=== PATIENT | female | born 1995 | race Caucasian/White ===

== ENCOUNTER 2020-10-25 21:39 | Emergency (ER) | payer MEDICAID ==
[~2020-10-25] VITALS: Ht 157.5 cm; Wt 66.7 kg
[2020-10-25 21:44] VITALS: BP 121/81
--- NOTE | 2020-10-25 21:47 | NUR ---
TO BED AMBULATORY
--- NOTE | 2020-10-25 22:09 | NUR ---
RECEIVED IN BED 7 WITH C/O RIGHT SHOULDER PAIN SINCE THIS AM WITH TINGLING TO RIGHT ARM. F.R.O.M. NOTED.
[2020-10-25] MEDS ORDERED: IBUPROFEN 600 MG TAB PO ONE (23:25)
[2020-10-25] MEDS ORDERED: CYCLOBENZAPRINE 10 MG TAB PO ONE (23:25)
[2020-10-25] MEDS ORDERED: LIDO1ADH47 TP (23:35)
[2020-10-25] MEDS ORDERED: CYCL-711 PO (23:35)
--- NOTE | 2020-10-25 23:58 | NUR ---
Patient discharged with v/s stable. Written and verbal after care instructions given and explained. Patient alert, oriented and verbalized understanding of instructions. Ambulatory with steady gait. All questions addressed prior to discharge. ID band removed. Patient advised to follow up with PMD. Rx of FLEXERIL given. Patient educated on indication of medication including possible reaction and side effects. Opportunity to ask questions provided and answered.
== END 2020-10-25 23:58 | disposition home or self-care (01) ==
LOC: MED 21:39
DX: M25.511 Pain in right shoulder (principal); Z88.6 Allergy status to analgesic agent; Z79.899 Other long term (current) drug therapy
CPT/HCPCS: 73030; 99283

== ENCOUNTER 2021-03-13 22:01 | Emergency (ER) | payer MEDICAID ==
[~2021-03-13] VITALS: Ht 157.5 cm; Wt 59.0 kg
[~2021-03-13 22:01] MED LIST: CYCL-711 PO; LIDO1ADH47 TP
--- NOTE | 2021-03-13 22:38 | NUR ---
Dr. Yanez examining patient.
[2021-03-13 22:40] VITALS: BP 129/78
[2021-03-13 22:48] LABS: APPEARANCE,URINE SL CLOUDY (CLEAR); BILIRUBIN,URINE NEGATIVE (NEGATIVE); BLOOD, URINE TRACE-I (NEGATIVE); COLOR,URINE YELLOW (YELLOW); LEUKOCYTE ESTERASE ,URINE 1+ (NEGATIVE); NITRITE, URINE NEGATIVE (NEGATIVE); UGLUCOSE NEGATIVE (NEGATIVE)
[2021-03-13] MEDS ORDERED: PHEN-1877 PO (22:50)
[2021-03-13] MEDS ORDERED: NITR100C7 PO (22:50)
[2021-03-13 22:56] VITALS: BP 129/78
--- NOTE | 2021-03-13 22:57 | NUR ---
Patient discharged with v/s stable. Written and verbal after care instructions given and explained. Patient verbalized understanding. Ambulatory with steady gait. All questions addressed prior to discharge. Advised to follow up with PMD.
[2021-03-13 22:59] LABS: RBC,URINE 0-5 /HPF (0-5)
== END 2021-03-13 22:57 | disposition home or self-care (01) ==
LOC: MED 22:01
DX: N39.0 Urinary tract infection, site not specified (principal); R11.0 Nausea; Z79.899 Other long term (current) drug therapy; Z88.6 Allergy status to analgesic agent
CPT/HCPCS: 81001; 81025; 87086; 99283

== ENCOUNTER 2021-09-11 19:48 | Emergency (ER) | payer MEDICAID ==
[~2021-09-11] VITALS: Ht 157.5 cm; Wt 62.2 kg
[~2021-09-11 19:48] MED LIST changes: +NITR100C7 PO; +PHEN-1877 PO
[2021-09-11 20:01] VITALS: BP 128/72
--- NOTE | 2021-09-11 20:05 | NUR ---
PT TAKEN TO BED 11.
--- NOTE | 2021-09-11 20:05 | NUR ---
PT TAKEN TO BED 11
--- NOTE | 2021-09-11 20:06 | NUR ---
Patient BIB by family from home. C/O bug bite x 3 weeks. Patient reported, had unknown bug bite right inner ankle ~ 3 weeks ago, burning sensation, itchy ,joints pain and no fever.
--- NOTE | 2021-09-11 20:54 | NUR ---
Dr. Bueno at bedside to exam patient.
--- NOTE | 2021-09-11 22:13 | NUR ---
Patient states " I can not wait, I have emergency and need to go now." Dr. Bueno notified.
[2021-09-11 22:15] VITALS: BP 128/72
--- NOTE | 2021-09-11 22:15 | NUR ---
Patient D/C without papers.
== END 2021-09-11 22:15 | disposition home or self-care (01) ==
LOC: MED 19:48
DX: R21 Rash and other nonspecific skin eruption (principal); M25.571 Pain in right ankle and joints of right foot; R20.0 Anesthesia of skin; R20.2 Paresthesia of skin; Z79.899 Other long term (current) drug therapy; Z88.6 Allergy status to analgesic agent
CPT/HCPCS: 99281

== ENCOUNTER 2021-12-21 00:06 | Emergency (ER) | payer MEDICAID ==
[~2021-12-21] VITALS: Ht 157.5 cm; Wt 62.8 kg
[2021-12-21 00:12] VITALS: BP 126/77
--- NOTE | 2021-12-21 00:16 | NUR ---
PT TO LOBBY WAITING FOR OPEN BED.
--- NOTE | 2021-12-21 00:25 | NUR ---
EXAMINING PT IN [facility].
[2021-12-21] MEDS ORDERED: IBUPROFEN 800 MG TAB PO ONE (00:35)
[2021-12-21] MEDS ORDERED: PANTOPRAZOLE 40 MG TABEC PO ONE (00:35)
--- NOTE | 2021-12-21 00:39 | NUR ---
PT TAKEN TO CT VIA W/C
--- NOTE | 2021-12-21 00:51 | NUR ---
PT BACK FROM CT
--- NOTE | 2021-12-21 00:51 | NUR ---
PT TAKEN TO BED #[address]
--- NOTE | 2021-12-21 01:25 | NUR ---
26 Y.O. F BIB SELF C/O 01/28 LUQ PAIN RAD TO BACK X4DAYS. +NAUSEA. DENIES V/D, SOB OR CHEST PAIN. A&OX4, STEADY GAIT, VITALS WNL, SKIN INTACT, AND IS NORMAL. HX:CHIARI MALFORMATION RX:TOPAMAX ALLERGY:TYLENOL AND IBUPROFEN
[2021-12-21 02:12] LABS: BASOPHILS # (AUTO) 0.1 K/uL (0.00-0.22); BASOPHILS % (AUTO) 0.6 % (0.0-2.0); EOSINOPHILS # (AUTO) 0.1 K/uL (0-0.4); EOSINOPHILS % (AUTO) 1.4 % (0.0-4.0); HEMATOCRIT 37.4 % (36-48); HEMOGLOBIN 12.7 g/dL (12.0-16.0); MEAN CORPUSCULAR HEMOGLOBIN 29 pg (27-31); MEAN CORPUSCULAR HGB CONC 34 g/dL (33-37); MEAN CORPUSCULAR VOLUME 85.1 fL (80-94); MONOCYTES # (AUTO) 0.9 K/uL (0.8-1.0); MONOCYTES % (AUTO) 9.5 % (1.7-9.3); NEUTROPHILS # (AUTO) 5.8 K/uL (1.8-7.7); NEUTROPHILS % (AUTO) 58.5 % (42.2-75.2); PLATELET COUNT (AUTO) 316 K/uL (140-450); RED CELL DISTRIBUTION WIDTH 12.9 % (11.6-13.7); WHITE BLOOD COUNT (AUTO) 9.8 K/uL (4.8-10.8)
[2021-12-21 02:34] LABS: ALBUMIN 3.6 g/dL (3.4-5.0); ANION GAP 8.9 (8-16); CARBON DIOXIDE 27.9 mmol/L (21-32); CREATININE 0.6 mg/dL (0.6-1.3); POTASSIUM 3.8 mmol/L (3.5-5.1); TOTAL BILIRUBIN 0.5 mg/dL (0.0-1.0)
[2021-12-21] MEDS ORDERED: PANT40EC PO (02:46)
[2021-12-21 04:01] VITALS: BP 124/78
--- NOTE | 2021-12-21 04:02 | NUR ---
Patient discharged with v/s stable. Written and verbal after care instructions given and explained. Patient alert, oriented and verbalized understanding of instructions. Ambulatory with steady gait. All questions addressed prior to discharge. ID band removed. Patient advised to follow up with PMD. Rx of PROTONIX given. Patient educated on indication of medication including possible reaction and side effects. Opportunity to ask questions provided and answered.
== END 2021-12-21 04:02 | disposition home or self-care (01) ==
LOC: MED 00:06
DX: R10.12 Left upper quadrant pain (principal); R11.0 Nausea; Z79.899 Other long term (current) drug therapy; Z79.2 Long term (current) use of antibiotics; Z88.6 Allergy status to analgesic agent; Z88.8 Allergy status to other drugs, medicaments and biological substances
CPT/HCPCS: 36415; 80053; 81002; 81025; 85025; 99284

== ENCOUNTER 2022-05-12 18:38 | Emergency (ER) | payer MEDICAID ==
[~2022-05-12] VITALS: Ht 157.5 cm; Wt 59.9 kg
[~2022-05-12 18:38] MED LIST changes: +PANT40EC PO
[2022-05-12 19:47] VITALS: BP 133/97
--- NOTE | 2022-05-12 19:55 | NUR ---
TO LOBBY FOLLOWING TRIAGE AND OBTAINING UA
[2022-05-12] MEDS ORDERED: KETOROLAC 30 MG/ML VIAL IM ONE (20:15)
--- NOTE | 2022-05-12 21:14 | NUR ---
Dr. Bueno examining patient.
[2022-05-12] MEDS ORDERED: KETOROLAC 30 MG/ML VIAL ONE (21:46)
[2022-05-12 22:12] VITALS: BP 127/82
== END 2022-05-12 22:12 | disposition home or self-care (01) ==
LOC: MED 18:38
DX: R10.2 Pelvic and perineal pain (principal); R50.9 Fever, unspecified; R06.02 Shortness of breath; Z88.6 Allergy status to analgesic agent; Z79.899 Other long term (current) drug therapy
CPT/HCPCS: 76856; 81002; 81025; 93976; 96372; 99284; J1885

== ENCOUNTER 2022-06-19 14:35 | Emergency (ER) | payer MEDICAID ==
[~2022-06-19] VITALS: Ht 154.9 cm; Wt 62.1 kg
[2022-06-19 14:54] VITALS: BP 118/78
[2022-06-19] MEDS ORDERED: KETOROLAC 30 MG/ML VIAL IM ONE (15:35)
[2022-06-19] MEDS ORDERED: TRIA0.029 TP (17:27)
[2022-06-19] MEDS ORDERED: NAPR-1560 PO (17:27)
[2022-06-19 17:45] VITALS: BP 118/78
--- NOTE | 2022-06-19 17:45 | NUR ---
27 Y/O FEMALE BIB SELF C/O RIGHT LEG PAIN [id number], PER PT INTERMITTENT LEG PAIN AND SWELLING, DENIES ANY TRAUMA/INJURY, FULL ROM NOTED, DENIES ANY NUMBNESS AND TINGLING, NOTED BLANCHEABLE RASH ON LOWER LEG ALLERGY: ACETAMINOPHEN, MOTRIN PMH: DENIES
--- NOTE | 2022-06-19 17:45 | NUR ---
Patient discharged with v/s stable. Written and verbal after care instructions given and explained. Patient alert, oriented and verbalized understanding of instructions. Ambulatory with steady gait. All questions addressed prior to discharge. ID band removed. Patient advised to follow up with PMD. Rx of TRIAMCINOLONE ACETONIDE, NAPROXEN given. Patient educated on indication of medication including possible reaction and side effects. Opportunity to ask questions provided and answered.
== END 2022-06-19 17:45 | disposition home or self-care (01) ==
LOC: MED 14:35
DX: M25.561 Pain in right knee (principal); R21 Rash and other nonspecific skin eruption; Z88.6 Allergy status to analgesic agent; Z79.899 Other long term (current) drug therapy
CPT/HCPCS: 73562; 81025; 96372; 99283; J1885; Q0163

== ENCOUNTER 2022-12-31 23:46 | Emergency (ER) | payer MEDICAID ==
[~2022-12-31] VITALS: Ht 154.9 cm; Wt 59.4 kg
[~2022-12-31 23:46] MED LIST changes: +NAPR-1560 PO; +TRIA0.029 TP
[2022-12-31 23:55] VITALS: BP 115/74; PULSE 80; RESP 16; TEMP 97.6; O2SAT 96
--- NOTE | 2023-01-01 | NUR ---
TO LOBBY A/W BED AMBULATORY
[2023-01-01] MEDS ORDERED: DEXAMETHASONE 10 MG/ML VIAL IM ONE (02:00)
[2023-01-01 02:21] VITALS: BP 115/74; PULSE 80; RESP 16; TEMP 97.6; O2SAT 96
== END 2023-01-01 02:21 | disposition home or self-care (01) ==
LOC: MED 23:46
DX: R21 Rash and other nonspecific skin eruption (principal); Z88.6 Allergy status to analgesic agent; Z79.899 Other long term (current) drug therapy
CPT/HCPCS: 96372; 99283; J1100

== ENCOUNTER 2023-01-25 20:25 | Emergency (ER) | payer MEDICAID ==
[~2023-01-25] VITALS: Ht 154.9 cm; Wt 63.5 kg
[2023-01-25 21:15] VITALS: BP 112/93; PULSE 83; RESP 16; TEMP 97.9; O2SAT 99
--- NOTE | 2023-01-25 21:18 | NUR ---
TO LOBBY A/W BED AMBULATORY
--- NOTE | 2023-01-25 23:01 | NUR ---
PT AMBULATES TO BED 4
[2023-01-25] MEDS ORDERED: ONDANSETRON 4 MG/2 ML VIAL IVP ONE (23:40)
[2023-01-25] MEDS ORDERED: NACL 0.9% 1,000 ML IV ONE (23:40)
[2023-01-25] MEDS ORDERED: KETOROLAC 15 MG/ML VIAL IVP ONE (23:40)
--- NOTE | 2023-01-25 23:40 | NUR ---
pt resting on bed. a/ox4. not in distress. on monitor. call light within reach and oriented. bed locked to lwest position. placed on moderate high back rest
[2023-01-25 23:49] LABS: BASOPHILS % (AUTO) 0.3 % (0.0-2.0); EOSINOPHILS # (AUTO) 0.1 K/uL (0-0.4); EOSINOPHILS % (AUTO) 0.8 % (0.0-4.0); HEMATOCRIT 39.3 % (36-48); HEMOGLOBIN 13.4 g/dL (12.0-16.0); LYMPHOCYTES # (AUTO) 1.6 K/uL (2.5-16.5); LYMPHOCYTES % (AUTO) 18.4 % (20.5-51.1); MEAN CORPUSCULAR HEMOGLOBIN 29 pg (27-31); MEAN CORPUSCULAR HGB CONC 34 g/dL (33-37); MEAN CORPUSCULAR VOLUME 84.1 fL (80-94); MONOCYTES # (AUTO) 0.7 K/uL (0.8-1.0); MONOCYTES % (AUTO) 8.2 % (1.7-9.3); NEUTROPHILS # (AUTO) 6.3 K/uL (1.8-7.7); NEUTROPHILS % (AUTO) 72.3 % (42.2-75.2); PLATELET COUNT (AUTO) 322 K/uL (140-450); RED BLOOD CELL COUNT(AUTO) 4.67 MIL/uL (4.20-5.40); RED CELL DISTRIBUTION WIDTH 12.8 % (11.6-13.7); WHITE BLOOD COUNT (AUTO) 8.7 K/uL (4.8-10.8)
[2023-01-25] MEDS ORDERED: KETOROLAC 30 MG/ML VIAL ONE (23:53)
[2023-01-26 00:08] LABS: ALBUMIN 4.1 g/dL (3.4-5.0); ASPARTATE AMINOTRANSFERASE 22 U/L (15-37); CARBON DIOXIDE 26.2 mmol/L (21-32); CREATININE 0.7 mg/dL (0.6-1.3); GFR ARICAN-AMERICAN 128 mL/min (>90); GLUCOSE 106 mg/dL (74-106); LIPASE 263 U/L (73-393); UREA NITROGEN, BLOOD 14 mg/dL (7-18)
[2023-01-26 00:11] LABS: ANION GAP 12.5 (8-16); CHLORIDE 105 mmol/L (98-107); POTASSIUM 3.7 mmol/L (3.5-5.1); SODIUM SERUM 140 mmol/L (136-145)
--- NOTE | 2023-01-26 01:00 | NUR ---
pt resting on bed. a/ox4. not in distress. on monitor. call light within reach. bed locked to lwest position. placed on moderate high back rest
[2023-01-26] MEDS ORDERED: ONDA-188 SL (01:15)
[2023-01-26] MEDS ORDERED: FAMO-92 PO (01:15)
[2023-01-26 01:52] VITALS: BP 110/80; PULSE 83; RESP 16; TEMP 97.9; O2SAT 100
--- NOTE | 2023-01-26 01:52 | NUR ---
Patient discharged with v/s stable. Written and verbal after care instructions given and explained. Patient alert, oriented and verbalized understanding of instructions. Ambulatory with steady gait. All questions addressed prior to discharge. ID band removed. Patient advised to follow up with PMD. Rx given to pt. Patient educated on indication of medication including possible reaction and side effects. Opportunity to ask questions provided and answered.
== END 2023-01-26 01:52 | disposition home or self-care (01) ==
LOC: MED 20:25
DX: K21.9 Gastro-esophageal reflux disease without esophagitis (principal); R07.89 Other chest pain; Z79.899 Other long term (current) drug therapy; Z79.1 Long term (current) use of non-steroidal anti-inflammatories (NSAID); Z79.2 Long term (current) use of antibiotics; Z88.8 Allergy status to other drugs, medicaments and biological substances
CPT/HCPCS: 36415; 71045; 80053; 81002; 81025; 83690; 84484; 85025; 93005; 96361; 96374; 96375; 99285; J1885; J2405; J7030; Q0092

== ENCOUNTER 2023-05-23 15:38 | Emergency (ER) | payer MEDICAID ==
[~2023-05-23] VITALS: Ht 154.9 cm; Wt 64.4 kg
[~2023-05-23 15:38] MED LIST changes: +FAMO-92 PO; +ONDA-188 SL
[2023-05-23 15:48] VITALS: BP 129/96; PULSE 116; RESP 16; TEMP 98.1; O2SAT 99
== END 2023-05-23 17:10 | disposition home or self-care (01) ==
LOC: MED 15:38
DX: S90.32XA Contusion of left foot, initial encounter (principal); Z79.899 Other long term (current) drug therapy; Z79.1 Long term (current) use of non-steroidal anti-inflammatories (NSAID); Z79.2 Long term (current) use of antibiotics; Z88.8 Allergy status to other drugs, medicaments and biological substances; W22.8XXA Striking against or struck by other objects, initial encounter; Y93.01 Activity, walking, marching and hiking; Y92.89 Other specified places as the place of occurrence of the external cause; Y99.8 Other external cause status
CPT/HCPCS: 73630; 99283

== ENCOUNTER 2023-10-04 17:19 | Emergency (ER) | payer MEDICAID ==
[~2023-10-04] VITALS: Ht 154.9 cm; Wt 61.7 kg
[2023-10-04 17:32] VITALS: BP 116/84; PULSE 74; RESP 16; TEMP 97.8; O2SAT 98
[2023-10-04] MEDS ORDERED: ALBU0.0912 IH (18:29)
[2023-10-04] MEDS ORDERED: PRED20TA5 PO (18:29)
[2023-10-04] MEDS ORDERED: BENZ100C6 PO (18:29)
== END 2023-10-04 18:45 | disposition home or self-care (01) ==
LOC: MED 17:19
DX: R05.9 Cough, unspecified (principal); Z79.899 Other long term (current) drug therapy
CPT/HCPCS: 71045; 99283

== ENCOUNTER 2024-01-24 22:22 | Emergency (ER) | payer MEDICAID, OTHER ==
[~2024-01-24] VITALS: Ht 154.9 cm; Wt 65.8 kg
[~2024-01-24 22:22] MED LIST changes: +ALBU0.0912 IH; +BENZ100C6 PO; +PRED20TA5 PO
[2024-01-24 22:32] VITALS: BP 132/82; PULSE 82; RESP 18; TEMP 98; O2SAT 98
[2024-01-25] MEDS: KETOROLAC 30 MG/ML VIAL IM ONE (00:56)
[2024-01-25 01:04] VITALS: BP 132/82; PULSE 82; RESP 18; TEMP 98; O2SAT 98
== END 2024-01-25 01:04 | disposition home or self-care (01) ==
LOC: MED 22:22
DX: G56.01 Carpal tunnel syndrome, right upper limb (principal); Z79.1 Long term (current) use of non-steroidal anti-inflammatories (NSAID); Z79.899 Other long term (current) drug therapy; Z88.6 Allergy status to analgesic agent
CPT/HCPCS: 81025; 96372; 99283; J1885